=== PATIENT | male | born 1965 | race Two or more races ===

== ENCOUNTER 2018-02-03 15:13 | Emergency (ER) | payer SELFPAY ==
[2018-02-03] MEDS ORDERED: ACETAMINOPHEN 325 MG TAB PO ONE (15:35)
[2018-02-03] MEDS ORDERED: NS 1,000 ML IV ONE (15:35)
[2018-02-03] MEDS ORDERED: ACETAMINOPHEN 500 MG TAB ONE ×2 (15:50)
--- NOTE | 2018-02-03 15:51 | EDPHY ---
H & P Stated Complaint: flu like symptoms, high fever Time Seen by Provider: 02/03/18 15:34 HPI/ROS: CHIEF COMPLAINT: Fever, diarrhea HISTORY OF PRESENT ILLNESS: 52-year-old male presents with a one-week history of fever and diarrhea. Onset of fever, chills and watery diarrhea 1 week ago. 3-4 episodes of diarrhea daily. Associated with diffuse myalgias and excessive fatigue. Tolerating oral fluids/food without nausea. Mainly laying in bed all day x 1 week. No cough, shortness of breath, abdominal pain or vomiting. No flu vaccination this year. REVIEW OF SYSTEMS: complete 10 point ROS reviewed and is negative except for the noted elements in the HPI - Personal History Current Tetanus Diphtheria and Acellular Pertussis (TDAP): Unsure - Medical/Surgical History Hx Asthma: No Hx Chronic Respiratory Disease: No Hx Diabetes: No Hx Cardiac Disease: No Hx Renal Disease: No Hx Cirrhosis: No Hx Alcoholism: No Hx HIV/AIDS: No Hx Splenectomy or Spleen Trauma: No Other PMH: denies - Social History Smoking Status: Former smoker Alcohol Use: Sober Drug Use: None - Physical Exam Exam: General Appearance: Alert, pleasant, nontoxic appearing Eyes: Pupils equal and round, no conjunctival pallor or injection ENT, Mouth: Mucous membranes moist, no pharyngeal erythema Neck: Normal inspection Respiratory: normal resp rate, rales at the right base Cardiovascular: Regular tachycardia Gastrointestinal: Abdomen is soft and nontender Neurological: A&O, nonfocal exam Skin: Warm and dry, no rash Extremities: Normal inspection Psychiatric: Mood and affect normal Constitutional: Initial Vital Signs Temperature (C) 40 C H 02/03/18 15:23 Heart Rate 120 H 02/03/18 15:23 Respiratory Rate 16 02/03/18 15:23 Blood Pressure 141/78 H 02/03/18 15:23 O2 Sat (%) 90 L 02/03/18 15:23 O2 Delivery Mode Room Air Allergies/Adverse Reactions: No Known Drug Allergies Allergy (Verified 02/03/18 15:32) Medical Decision Making - Diagnostics Imaging Results: Chest X-Ray 02/03/18 15:35 Impression: 1. Focal moderate consolidation right lower lobe posterior medially. 2. Mild peribronchial cuffing. Imaging: I viewed and interpreted images myself ED Course/Re-evaluation: This patient presents with fever, right lower lobe rales and tachycardia., consistent with pneumonia. Meets SIRS criteria, lactate normal. IV NS 1 liter and Tylenol 650mg orally given. Chest x-ray reveals a right lower lobe infiltrate. Rocephin IV and Zithromax po given. Admission advised b/c of lobar pneumonia, dehydration and borderline hypoxia. The patient initially agreed to admission, but later refused admission. Clearly understands the risks and benefits of this decision. Warning signs discussed. f/u 2-3 days for recheck. Rx: Doxycycline. No BM while in ED, stool not collected. Differential Diagnosis: Differential diagnosis includes pyelonephritis, cholecystitis, influenza, cellulitis, pneumonia, abscess, meningitis. - Data Points Laboratory Results: Laboratory Results 02/03/18 15:55 02/03/18 15:55 Microbiology Results: MICROBIOLOGY 02/03/18 15:55 Blood Blood Culture - Preliminary 02/03/18 16:15 Blood Blood Culture - Preliminary Medications Given: Discontinued Medications Acetaminophen (Tylenol) 1,000 mg PO EDNOW ONE Stop: 02/03/18 15:36 Last Admin: 02/03/18 15:54 Dose: 1,000 mg Azithromycin (Zithromax) 500 mg PO EDNOW ONE PRN Reason: Protocol Stop: 02/03/18 16:39 Last Admin: 02/03/18 17:13 Dose: 500 mg Sodium Chloride (Ns) 1,000 mls @ 0 mls/hr IV ONCE ONE; Wide Open PRN Reason: Protocol Stop: 02/03/18 15:36 Last Admin: 02/03/18 15:55 Dose: 1,000 mls Ceftriaxone Sodium/Dextrose (Rocephin 1 Gm (Premix)) 50 mls @ 100 mls/hr IV EDNOW ONE PRN Reason: Protocol Stop: 02/03/18 17:07 Last Admin: 02/03/18 17:13 Dose: 50 mls Departure - Departure Disposition: Home, Routine, Self-Care Clinical Impression: Pneumonia Qualifiers: Pneumonia type: due to unspecified organism Laterality: right Lung location: lower lobe of lung Qualified Code(s): J18.1 - Lobar pneumonia, unspecified organism Condition: Fair
[2018-02-03 16:16] LABS: PLATELET COUNT 152 10^3/uL (150-400)
[2018-02-03] MEDS ORDERED: AZITHROMYCIN 250 MG TAB PO ONE (16:38)
[2018-02-03 18:04] VITALS: BP 106/73
== END 2018-02-03 18:01 | disposition home or self-care (01) ==
LOC: UNDOADMOB 16:43
DX: J18.9 Pneumonia, unspecified organism (principal); E86.9 Volume depletion, unspecified; Z87.891 Personal history of nicotine dependence
CPT/HCPCS: 96365; J0696